=== PATIENT | female | born 1980 | race Two or more races ===

== ENCOUNTER 2017-03-29 10:01 | Outpatient (CLI) | payer OTHER, MEDICAID ==
[2017-03-29 10:57] LABS: APPEARANCE,URINE SLIGHTLY-CLOUDY; BILIRUBIN,URINE NEGATIVE (NEGATIVE); GLUCOSE, URINE NEGATIVE (NEGATIVE); KETONES,URINE NEGATIVE (NEGATIVE); LEUKOCYTE ESTERASE,URINE SMALL (NEGATIVE); NITRITE,URINE POSITIVE (NEGATIVE); PROTEIN,URINE NEGATIVE (NEGATIVE); URINE SPECIFIC GRAVITY 1.006; UROBILINOGEN,URINE NEGATIVE mg/dL (<2.0)
[2017-03-29 11:01] LABS: AMNISURE (ROM) NEGATIVE (NEGATIVE)
[2017-03-29 11:18] LABS: URINE BARBITURATES SCREEN NEGATIVE; URINE METHADONE SCREEN NEGATIVE; URINE OPIATES LOW NEGATIVE; URINE PHENCYCLIDINE SCREEN NEGATIVE
== END 2017-03-29 11:58 | disposition home or self-care (01) ==
LOC: LC 10:01
PROVIDERS: ATTEND Student in an Organized Health Care Education/Training Program
PROC: 4A1HXCZ Monitoring of Products of Conception, Cardiac Rate, External Approach (ICD-10-PCS; principal; 2017-03-29)
DX: O09.523 Supervision of elderly multigravida, third trimester (principal); Z3A.34 34 weeks gestation of pregnancy
CPT/HCPCS: 59025; 80307; 81001; 84112

== ENCOUNTER 2017-04-13 09:58 | Outpatient (CLI) | payer OTHER, MEDICAID ==
--- NOTE | 2017-04-13 10:00 | Non Stress Test Report ---
Non Stress Test Datetime Report Generated by CPN: 04/13/2017 09:59 DEMOGRAPHIC EGA NST: 34.1 INDICATION Indication for Study: Ordered by Provider MONITORING Monitor Explained: Monitor Explained; Test Explained; Patient Verbalized Understanding Time on Monitor: 03/29/2017 10:35 Time off Monitor: 03/29/2017 11:45 NST Duration: 70 NST INTERVENTIONS NST Interventions: Reposition Patient Physician Notified NST: Dr. Schultz BABY A: [id number] BABY A Movement : Present Contraction Frequency : none FHR Baseline : 130 Accelerations : 15X15 Variability : Moderate 6-25bpm NST Review: Meets Criteria for Reactive NST NST Review and Verified By : Alexander Streeter RNC NST Results: Reactive NST REPORT Report Trigger: Send Report
--- NOTE | 2017-04-13 11:07 | Non Stress Test Report ---
Non Stress Test Datetime Report Generated by CPN: 04/13/2017 11:07 DEMOGRAPHIC EGA NST: 36.2 INDICATION Indication for Study: Ordered by Provider Indication for Study (NST) Other: Repeat MONITORING Monitor Explained: Monitor Explained; Test Explained; Patient Verbalized Understanding Time on Monitor: 04/13/2017 10:31 Time off Monitor: 04/13/2017 10:51 NST Duration: 20 NST INTERVENTIONS NST Interventions: PO Hydration Physician Notified NST: H. Lalito CNM BABY A Movement : Present Contraction Frequency : none FHR Baseline : 130 Accelerations : 15X15 Decelerations : None Variability : Moderate 6-25bpm NST Review: Meets Criteria for Reactive NST NST Review and Verified By : Karthikeyan Nelson RN NST Results: Reactive NST REPORT Report Trigger: Send Report
== END 2017-04-13 11:02 | disposition home or self-care (01) ==
LOC: LC 09:58
PROVIDERS: ATTEND Obstetrics & Gynecology
PROC: 4A1HXCZ Monitoring of Products of Conception, Cardiac Rate, External Approach (ICD-10-PCS; principal; 2017-04-13)
DX: O09.523 Supervision of elderly multigravida, third trimester (principal); Z3A.36 36 weeks gestation of pregnancy
CPT/HCPCS: 59025

== ENCOUNTER 2017-04-16 10:07 | Outpatient (CLI) | payer OTHER, MEDICAID | END 2017-04-16 10:52 | disposition home or self-care (01) | LOC: LC 10:07 | PROVIDERS: ATTEND Obstetrics & Gynecology | PROC: 4A1HXCZ Monitoring of Products of Conception, Cardiac Rate, External Approach (ICD-10-PCS; principal; 2017-04-16) | DX: O09.523 Supervision of elderly multigravida, third trimester (principal); Z3A.36 36 weeks gestation of pregnancy | CPT/HCPCS: 59025 ==

== ENCOUNTER 2017-04-30 11:00 | Outpatient (CLI) | payer OTHER, MEDICAID | END 2017-04-30 12:20 | disposition home or self-care (01) | LOC: LC 11:00 | PROVIDERS: ATTEND Obstetrics & Gynecology | PROC: 4A1HXCZ Monitoring of Products of Conception, Cardiac Rate, External Approach (ICD-10-PCS; principal; 2017-04-30) | DX: O09.523 Supervision of elderly multigravida, third trimester (principal); Z3A.38 38 weeks gestation of pregnancy | CPT/HCPCS: 59025 ==

== ENCOUNTER 2017-05-03 04:59 | Inpatient (IN) | payer OTHER, MEDICAID ==
[2017-05-03] MEDS ORDERED: LACTATED RINGERS 1000 ML IV PRN (05:00)
[2017-05-03] MEDS ORDERED: LIDOCAINE 0.5% INJ-PF (5 MG/ML) 50 ML SDV SUBCUT PRN (05:00)
[2017-05-03] MEDS ORDERED: CEFAZOLIN 1 GM/D5W RTU 1 GM/50 ML RTUPB IV PRN (05:10)
[2017-05-03] MEDS ORDERED: CEFAZOLIN 1 GM/D5W RTU 1 GM/50 ML RTUPB IV ONE (05:12)
[2017-05-03] MEDS ORDERED: RINGERS SOLUTION,LACTATED 2,000 ML IV ONE (05:15)
[2017-05-03 05:31] LABS: ABSOLUTE EOSINOPHILS # (AUTO) 0.1 10^3/uL (0.0-0.6); ABSOLUTE LYMPHOCYTES (AUTO) 2.6 10^3/uL (0.5-4.7); ABSOLUTE MONOCYTES (AUTO) 0.6 10^3/uL (0.1-1.4); ABSOLUTE NEUT (AUTO) 11.1 10^3/uL (1.7-8.2); BASOPHILS % (AUTO) 0.1 % (0-2); EOSINOPHILS % (AUTO) 0.9 % (0-6); HEMATOCRIT 34.1 % (36.0-47.0); HEMOGLOBIN 11.4 g/dL (12.0-15.5); HGB HCT DIFFERENCE 0.1; LYMPHOCYTES % (AUTO) 18.2 % (13-45); MEAN CORPUSCULAR HEMOGLOBIN 31.7 pg (27.0-33.4); MEAN CORPUSCULAR HGB CONC 33.5 g/dL (32.0-36.0); MEAN CORPUSCULAR VOLUME 95 fl (80-97); MONOCYTES % (AUTO) 4.2 % (3-13); RED CELL DISTRIBUTION WIDTH 14.6 % (11.5-14.0); SEGMENTED NEUTROPHILS % (AUTO) 76.6 % (42-78); WHITE BLOOD COUNT 14.5 10^3/uL (4.0-10.5)
[2017-05-03 06:10] LABS: APPEARANCE,URINE SLIGHTLY-CLOUDY; BILIRUBIN,URINE NEGATIVE (NEGATIVE); GLUCOSE, URINE NEGATIVE (NEGATIVE); KETONES,URINE NEGATIVE (NEGATIVE); LEUKOCYTE ESTERASE,URINE NEGATIVE (NEGATIVE); NITRITE,URINE NEGATIVE (NEGATIVE); PROTEIN,URINE NEGATIVE (NEGATIVE); URINE SPECIFIC GRAVITY 1.004; UROBILINOGEN,URINE NEGATIVE mg/dL (<2.0)
[2017-05-03 06:18] LABS: URINE BARBITURATES SCREEN NEGATIVE; URINE METHADONE SCREEN NEGATIVE; URINE OPIATES LOW NEGATIVE; URINE PHENCYCLIDINE SCREEN NEGATIVE
[2017-05-03] MEDS ORDERED: CITRIC ACID/SODIUM CITRATE ORAL SOLN 15 ML UDCUP ONE (06:36)
[2017-05-03] MEDS ORDERED: CITRIC ACID/SODIUM CITRATE ORAL SOLN 15 ML UDCUP PO ONE (07:00)
[2017-05-03] MEDS ORDERED: OXYTOCIN 10 UNIT/ML VIAL ONE (07:41)
[2017-05-03] MEDS ORDERED: ONDANSETRON HCL INJ/PF 4 MG/2 ML SDV ONE (07:41)
[2017-05-03] MEDS ORDERED: EPHEDRINE SULFATE INJ 50 MG/1 ML AMPULE ONE (07:41)
[2017-05-03] MEDS ORDERED: FENTANYL CITRATE INJ/PF 100 MCG/2 ML AMPUL ONE ×2 (07:41→09:35)
[2017-05-03] MEDS ORDERED: MIDAZOLAM 2 MG/2 ML INJ ONE (07:42)
--- NOTE | 2017-05-03 08:11 | Non Stress Test Report ---
Non Stress Test Datetime Report Generated by CPN: 05/03/2017 08:10 DEMOGRAPHIC EGA NST: 38.5 EGA NST: 36.5 INDICATION Indication for Study: Ordered by Provider Indication for Study: Ordered by Provider Indication for Study (NST) Other: AMA MONITORING Monitor Explained: Monitor Explained; Test Explained; Patient Verbalized Understanding Monitor Explained: Monitor Explained; Test Explained; Patient Verbalized Understanding (Annotations: Data stored by [facility] on behalf of user) Time on Monitor: 04/30/2017 11:29 Time on Monitor: 04/16/2017 10:22 Time off Monitor: 04/30/2017 12:13 NST Duration: 44 NST INTERVENTIONS NST Interventions: PO Hydration NST Interventions: PO Hydration; Reposition Patient Physician Notified NST: ASony Zhangel CNM Physician Notified NST: Ariane Ozuna CNM BABY A: [id number] BABY A Movement : Present Movement : Present Contraction Frequency : x0 Contraction Frequency : none FHR Baseline : 125 FHR Baseline : 135 Accelerations : 15X15 Accelerations : 15X15 Decelerations : None Decelerations : None Variability : Moderate 6-25bpm Variability : Moderate 6-25bpm NST Review: Meets Criteria for Reactive NST NST Review: Meets Criteria for Reactive NST NST Review and Verified By : Karthikeyan Nelson RN NST Results: Reactive NST Results: Reactive NST REPORT Report Trigger: Send Report
[2017-05-03] MEDS ORDERED: MEPERIDINE HCL/PF INJ 25 MG/1 ML DISP.SYRIN IV PRN (08:12)
[2017-05-03] MEDS ORDERED: DIPHENHYDRAMINE HCL 50 MG/ML VIAL IV PRN (08:12)
[2017-05-03] MEDS ORDERED: PROMETHAZINE HCL INJ 25 MG/1 ML VIAL IV PRN ×2 (08:12→10:21)
[2017-05-03] MEDS ORDERED: FENTANYL CITRATE INJ/PF 100 MCG/2 ML AMPUL IV PRN ×3 (08:12)
[2017-05-03] MEDS ORDERED: DIPHENHYDRAMINE HCL 50 MG/ML VIAL ONE (09:05)
[2017-05-03] MEDS ORDERED: MEPERIDINE HCL/PF INJ 25 MG/1 ML DISP.SYRIN ONE (09:35)
[2017-05-03] MEDS ORDERED: DIPH/PERTUSS(ACELL)/TETANUS VAC/PF 0.5 ML SYR (>=10YO) IM PRN (10:21)
[2017-05-03] MEDS ORDERED: ACETAMINOPHEN 100 ML IV PRN (10:21)
[2017-05-03] MEDS ORDERED: OXYCODONE-ACETAMINOPHEN 5-325 MG TABLET PO PRN (10:21)
[2017-05-03] MEDS ORDERED: MEASLES,MUMPS&RUBELLA VACC/PF 0.5 ML VIAL SUBCUT PRN (10:21)
[2017-05-03] MEDS ORDERED: OXYTOCIN/NORMAL SALINE 1,000 ML IV PRN (10:21)
[2017-05-03] MEDS ORDERED: ACETAMINOPHEN 325 MG TABLET PO PRN (10:21)
[2017-05-03] MEDS ORDERED: SIMETHICONE 80 MG TAB.CHEW PO PRN (10:21)
[2017-05-03] MEDS ORDERED: KETOROLAC TROMETHAMINE INJ/PF 30 MG/1 ML SDV ONE (10:29)
[2017-05-03] MEDS ORDERED: HYDROMORPHONE HCL INJ/PF 2 MG/ML AMPULE ONE (10:30)
[2017-05-03] MEDS ORDERED: ACETAMINOPHEN 100 ML IV ONE (10:30)
[2017-05-03] MEDS: HYDROMORPHONE HCL INJ/PF 2 MG/ML AMPULE IV PRN ×2 (10:41→14:03)
[2017-05-03] MEDS ORDERED: KETOROLAC TROMETHAMINE INJ/PF 30 MG/1 ML SDV IV ONE (11:00)
[2017-05-03] MEDS ORDERED: KETOROLAC TROMETHAMINE INJ/PF 30 MG/1 ML SDV IV SCH (14:00)
[2017-05-03] MEDS: DOCUSATE SODIUM 100 MG CAPSULE PO SCH (17:36)
[2017-05-03] MEDS: KETOROLAC TROMETHAMINE INJ/PF 30 MG/1 ML SDV IV SCH (17:37)
[2017-05-03] MEDS: OXYCODONE-ACETAMINOPHEN 5-325 MG TABLET PO PRN ×2 (17:50→21:57)
[2017-05-04] MEDS: KETOROLAC TROMETHAMINE INJ/PF 30 MG/1 ML SDV IV SCH (01:42)
[2017-05-04] MEDS: OXYCODONE-ACETAMINOPHEN 5-325 MG TABLET PO PRN ×5 (03:50→23:03)
[2017-05-04 06:27] LABS: HEMATOCRIT 27.4 % (36.0-47.0); HGB HCT DIFFERENCE -1.3; MEAN CORPUSCULAR HEMOGLOBIN 30.4 pg (27.0-33.4); MEAN CORPUSCULAR HGB CONC 31.9 g/dL (32.0-36.0); MEAN CORPUSCULAR VOLUME 95 fl (80-97); RED BLOOD COUNT 2.87 10^6/uL (3.72-5.28); RED CELL DISTRIBUTION WIDTH 15.1 % (11.5-14.0); WHITE BLOOD COUNT 13.3 10^3/uL (4.0-10.5)
[2017-05-04 06:29] LABS: HEMOGLOBIN 8.7 g/dL (12.0-15.5)
[2017-05-04] MEDS: PRENATAL VITAMIN W-O CA NO5/FE FUMARATE/FA CAPSULE PO SCH (10:23)
[2017-05-04] MEDS: DOCUSATE SODIUM 100 MG CAPSULE PO SCH ×2 (10:23→17:56)
--- NOTE | 2017-05-04 11:04 | PDOC PROGRESS REPORT ---
Subjective-OB Subjective: Post Delivery Day: 1 36 year old. Denies any needs at this time, doing well, passing gas , lochia is stable, moving around. Physical Exam (OB) Vital Signs: Temp Pulse Resp BP Pulse Ox 98.1 F 80 16 137/65 H 98 05/04/17 08:45 05/04/17 08:45 05/04/17 08:45 05/04/17 08:45 05/04/17 08:45 Intake & Output 05/03/17 05/04/17 05/05/17 06:59 06:59 06:59 Intake Total 3800 Output Total 1150 Balance 2650 Weight 146.51 kg - PIH/Pre-Eclampsia Clonus: Negative - Dressing Removed: Yes - medipore dressing removed; opsite dressing in place Incision: Dressing Closure Type: Sutures - Bilateral Tubal Ligation Dressing Removed: - medipore dressing removed; opsite dressing in place Site: Dressing - Lochia Lochia Amount: Scant < 10 ml Lochia Color: Rubra/Red - Abdomen Description: Tender, Soft Hernia Present: No Fundal Description: Firm, Midline Fundal Height: u/u - u/2 Objective-Diagnostic Laboratory: 05/04/17 06:06 05/04/17 06:06 WBC 13.3 H RBC 2.87 L Hgb 8.7 L D Hct 27.4 L MCV 95 MCH 30.4 MCHC 31.9 L RDW 15.1 H Plt Count 230 Assessment and Plan(PN) - Assessment and Plan (1) History of bilateral tubal ligation Is this a current diagnosis for this admission?: YesPlan: routine post op care (2) Delivery by elective caesarean section Is this a current diagnosis for this admission?: YesPlan: routine pp care (3) Qualifiers: Weeks of gestation: 39 weeks Qualified Code(s): Z3A.39 - 39 weeks gestation of Is this a current diagnosis for this admission?: YesPlan: pp care - Time Spent with Patient Time with patient: Less than 15 minutes Critical Time spent with patient: Less than 15 minutes Medications reviewed and adjusted accordingly: Yes - Disposition Anticipated Discharge: Home Within: within 48 hours
[2017-05-04] MEDS: IBUPROFEN 800 MG TABLET PO SCH ×3 (12:14→23:03)
[2017-05-04] MEDS ORDERED: LANSOPRAZOLE 30 MG TAB.RAP.DR PO PRN (15:18)
[2017-05-05] MEDS: OXYCODONE-ACETAMINOPHEN 5-325 MG TABLET PO PRN ×2 (03:53→09:55)
[2017-05-05] MEDS: IBUPROFEN 800 MG TABLET PO SCH (05:50)
[2017-05-05 09:52] VITALS: BP 142/78
--- NOTE | 2017-05-05 09:54 | PDOC DISCHARGE SUMMARY ---
Final Diagnosis Discharge Date: 05/05/17 - Final Diagnosis (1) History of bilateral tubal ligation Is this a current diagnosis for this admission?: Yes (2) Delivery by elective caesarean section Is this a current diagnosis for this admission?: Yes (3) Is this a current diagnosis for this admission?: Yes Discharge Data - Discharge Medication Home Medications: Pnv W-O Ca No5/Fe Fumarate/FA [-U Multiple Vitamin Capsule] 1 cap PO DAILY 12/06/11 Ranitidine HCl [Zantac 150 mg Tablet] 1 tab PO BID 03/29/17 Docusate Sodium [Colace 100 mg Capsule] 100 mg PO BID #60 capsule 05/05/17 Ferrous Sulfate [Feosol 325 mg Tablet] 325 mg PO DAILY #30 tab 05/05/17 Ibuprofen [Motrin 800 mg Tablet] 800 mg PO Q6 #60 tablet 05/05/17 Oxycodone HCl/Acetaminophen [Percocet 5-325 mg Tablet] 2 tab PO Q4HP PRN #30 tablet 05/05/17 Gestational Age: 39 Reason(s) for Admission: Ceasarean Section-Repeat, Tubal Ligation Procedures: NST Intrapartum Procedure(s): : Low Cervical, Transverse - Data Baby 1 Female Home with Mother: Yes Complications: No - Diagnosis Test Laboratory: Temp Pulse Resp BP Pulse Ox 98.2 F 74 16 142/78 H 99 05/05/17 09:48 05/05/17 09:48 05/05/17 09:48 05/05/17 09:48 05/05/17 09:48 05/03/17 05/03/17 05/04/17 05:00 05:19 06:06 RBC 3.60 L 2.87 L Hgb 11.4 L 8.7 L D Hct 34.1 L 27.4 L Urine Opiates Screen NEGATIVE - Discharge information/Instructions Discharge Activity: Activity As Tolerated, Pelvic Rest, No tub bath Discharge Diet: Regular Disposition: HOME, SELF-CARE Follow up with: [facility] in: 1, Weeks
[2017-05-05] MEDS: DOCUSATE SODIUM 100 MG CAPSULE PO SCH (09:55)
[2017-05-05] MEDS: PRENATAL VITAMIN W-O CA NO5/FE FUMARATE/FA CAPSULE PO SCH (09:56)
--- NOTE | 2017-06-26 14:05 | OPERATIVE REPORT E ---
Operative Report NAME: SHON WRIGHT : 1980 AGE: 36Y DATE OF SURGERY: 05/03/2017 ROOM: 222 PREOPERATIVE DIAGNOSES: 1. A 39-week intrauterine . 2. History of section x2 for repeat. 3. Patient desiring permanent sterilization. POSTOPERATIVE DIAGNOSES: 1. A 39-week intrauterine . 2. History of section x2 for repeat. 3. Patient desiring permanent sterilization. SURGEON: Silvano Beauchamp D.O. BACK END DEVELOPER: None. PROCEDURES: 1. Repeat low transverse section. 2. Bilateral tubal ligation using Filshie clips. ANESTHESIA: Spinal. COMPLICATIONS: None. PATHOLOGY: Placenta. ESTIMATED BLOOD LOSS: 600 mL. FINDINGS: 1. Viable female at 9:15 a.m. on 05/03/2017. Apgars 8 at one, 9 at five. 2. Patient with severe adhesive disease of the omentum to the anterior wall of the uterus. 3. Normal-appearing bilateral fallopian tubes and ovaries. DESCRIPTION OF PROCEDURE: Patient was taken to the operating room where spinal anesthesia was administered. Once this was accomplished, she was placed in the dorsal supine position with a leftward tilt upon the operating room table. She was then prepped and draped in a normal sterile fashion. A scalpel was then used to make a Pfannenstiel skin incision and the skin incision was carried down through subcutaneous tissue to the layer of the fascia. Fascia was incised in the midline and fascial incision was then extended bilaterally using the Bovie cautery. The superior fascial edge was grasped with Gloria clamps, elevated, and the rectus muscles dissected off sharply and bluntly. Attention was then turned to the inferior fascial edge, which was grasped with Gloria clamps, elevated, and the rectus muscle was dissected off sharply and bluntly. Rectus muscles were then in the midline and entering the peritoneum was made. At this time, it was noticed there was large amount of omentum adhered to the anterior wall of the uterus. Through careful dissection, this was removed with good hemostasis. Following this, the bladder blade was inserted and a scalpel was then used to make a low transverse hysterotomy incision. The was found to be in cephalic position and delivered through this incision without difficulty and atraumatically. The nose and mouth were suctioned. The cord was clamped and cut. The infant was handed off to the awaiting nurses. Cord blood was obtained. The placenta was then manually removed from the uterus. The uterus was then exteriorized and cleared of all clots and debris. The hysterotomy incision was then reapproximated using 2 layers of 1-0 Vicryl in a running, locking fashion. Following closure of the second layer, excellent hemostasis was noted. Following this, a Filshie clip was placed in the mid portion of each fallopian tube without difficulty and atraumatically. The uterus was then returned to the abdomen. Again, the hysterotomy incision was reinspected and found to have excellent hemostasis. Rectus muscles were then reapproximated using 1-0 Vicryl interrupted sutures. The fascia was then closed using 1-0 Vicryl in a running, non-locking fashion. The subcutaneous spaces were then made hemostatic using Bovie cautery. The skin was then closed with absorbable kalpana, covered with an OpSite and then with a pressure dressing. At this point in time, the procedure was terminated. All sponge, lap, and needle counts were correct x2. Patient tolerated the procedure well. Patient was taken to the recovery room in stable condition. DICTATING PHYSICIAN: Silvano Beauchamp DO [id number] PHY#: [id number] ID: [id number] JOB#: [id number] ACCT: [id number] cc:Silvano Beauchamp D.O. >
== END 2017-05-05 11:02 | disposition home or self-care (01) | DRG 765 ==
LOC: 2S 04:59
PROVIDERS: ADMIT Obstetrics & Gynecology; ATTEND Obstetrics & Gynecology
PROC: 0UL70CZ Occlusion of Bilateral Fallopian Tubes with Extraluminal Device, Open Approach (ICD-10-PCS; 2017-05-03)
PROC: 10D00Z1 Extraction of Products of Conception, Low, Open Approach (ICD-10-PCS; principal; 2017-05-03 07:45)
DX: O34.211 Maternal care for low transverse scar from previous cesarean delivery (principal); Z68.42 Body mass index [BMI] 45.0-49.9, adult; Z37.0 Single live birth; Z30.2 Encounter for sterilization; O99.214 Obesity complicating childbirth; E66.01 Morbid (severe) obesity due to excess calories; Z3A.39 39 weeks gestation of pregnancy; O99.89 Other specified diseases and conditions complicating pregnancy, childbirth and the puerperium; N73.6 Female pelvic peritoneal adhesions (postinfective)
CPT/HCPCS: 1961; 36415; 59025; 80307; 81001; 85025; 85027; 86850; 86900; 86901; 94799; J0131; J1170; J1200; J1885; J2175; J2250; J2405; J2590; J3010; J3490; J7120

== ENCOUNTER → 2017-11-23 | Outpatient (CLI) | payer OTHER, MEDICAID ==
[2017-11-23 10:33] LABS: ALANINE AMINOTRANSFERASE 21 U/L (9-52); ALBUMIN 4.4 g/dL (3.5-5.0); ALKALINE PHOSPHATASE 95 U/L (38-126); ANION GAP 12 (5-19); ASPARTATE AMINO TRANSFERASE 19 U/L (14-36); BILIRUBIN,DIRECT 0.3 mg/dL (0.0-0.4); BILIRUBIN,TOTAL 0.5 mg/dL (0.2-1.3); BLOOD UREA NITROGEN 10 mg/dL (7-20); CARBON DIOXIDE 26 mmol/L (22-30); CHLORIDE 106 mmol/L (98-107); GLUCOSE 88 mg/dL (75-110); POTASSIUM 4.6 mmol/L (3.6-5.0)
== END ==
LOC: OD 08:40
PROVIDERS: ATTEND Internal Medicine Cardiovascular Disease
DX: R06.00 Dyspnea, unspecified (principal); R53.83 Other fatigue; E78.5 Hyperlipidemia, unspecified; M62.81 Muscle weakness (generalized)
CPT/HCPCS: 36415; 80053; 82306; 84443

== ENCOUNTER → 2020-07-15 | Outpatient (CLI) | payer OTHER ==
--- NOTE | 2020-07-15 12:08 | RADIOLOGY REPORT (SQ) ---
EXAM DESCRIPTION: CHEST PA/LATERAL IMAGES COMPLETED DATE/TIME: 07/15/2020 10:27 am REASON FOR STUDY: MORBID (SEVERE) OBESITY DUE TO EXCESS CALORIES COMPARISON: None. EXAM PARAMETERS: NUMBER OF VIEWS: two views TECHNIQUE: Digital Frontal and Lateral radiographic views of the chest acquired. RADIATION DOSE: NA LIMITATIONS: none FINDINGS: LUNGS AND PLEURA: No opacities, masses or pneumothorax. No pleural effusion. MEDIASTINUM AND HILAR STRUCTURES: No masses or contour abnormalities. HEART AND VASCULAR STRUCTURES: Heart normal size. No evidence for failure. BONES: No acute findings. HARDWARE: None in the chest. OTHER: No other significant finding. IMPRESSION: NO SIGNIFICANT RADIOGRAPHIC FINDING IN THE CHEST. TECHNICAL DOCUMENTATION: JOB ID: [id number] 2010 [employer]- All Rights Reserved Reading location - IP/workstation name: [email or web address]
== END ==
LOC: OD 10:08
PROVIDERS: ATTEND Surgery
DX: E66.01 Morbid (severe) obesity due to excess calories (principal)
CPT/HCPCS: 71046

== ENCOUNTER → 2020-08-13 | Outpatient (CLI) | payer OTHER ==
--- NOTE | 2020-08-13 10:32 | WOMENS IMAGING REPORT ---
EXAM DESCRIPTION: U/S ABDOMEN LIMITED IMAGES COMPLETED DATE/TIME: 08/13/2020 10:18 am REASON FOR STUDY: R10.11 RIGHT UPPER QUADRANT PAIN R10.11 RIGHT UPPER QUADRANT PAIN COMPARISON: None. TECHNIQUE: Dynamic and static grayscale images acquired of the abdomen and recorded on PACS. Valarieo evin selected color Doppler and spectral images recorded. LIMITATIONS: None. FINDINGS: PANCREAS: Normal echogenicity. No masses. LIVER: The liver measures 16.3 cm in length, normal size. No masses. Echotexture normal. LIVER VASCULATURE: Normal directional flow of the main portal vein and hepatic veins. GALLBLADDER: No stones. The gallbladder wall measures 2.0 mm, normal wall thickness. No pericholecys tic fluid. ULTRASOUND-DETECTED ABEL'S SIGN: Negative. INTRAHEPATIC DUCTS AND COMMON DUCT: CBD measures 4.0 mm in diameter, normal. The intrahepatic ducts normal caliber. No filling defects. INFERIOR VENA CAVA: Normal flow. AORTA: No aneurysm. RIGHT KIDNEY: The right kidney measures 11.3 x 5.1 x 5.4 cm, normal size. Normal echogenicity. No so lid or suspicious masses. No hydronephrosis. No calcifications. PERITONEAL AND RIGHT PLEURAL SPACE: No ascites or effusions. OTHER: No other significant findings. IMPRESSION: 1. Examination is unremarkable sonographically. TECHNICAL DOCUMENTATION: JOB ID: [id number] 2010 [employer]- All Rights Reserved Reading location - IP/workstation name: [email or web address]
== END ==
LOC: WI 09:18
PROVIDERS: ATTEND Surgery
DX: R10.11 Right upper quadrant pain (principal)
CPT/HCPCS: 76705